=== PATIENT | female | born 1985 | race Caucasian/White ===

== ENCOUNTER → 2019-04-07 | Outpatient (CLI) | payer OTHER ==
[~2019-04-07] MED LIST: BACTRIM DS 8001 TA1 PO; CIPROFLOXACIN500 MG PO; CLARITIN10 MG PO; IBUPROFEN800 MG PO; MACROBID100 M1 PO; NKHM
[2019-04-07 12:17] LABS: BASO # 0.1 10*3/uL (0.0-0.1); BASO % 0.6 % (0.0-1.0); EOS # 0.2 10*3/uL (0.0-0.4); EOS % 2.8 % (1.0-4.0); HEMATOCRIT 43.4 % (37.0-47.0); HEMOGLOBIN 14.6 g/dl (12.0-16.0); LYMPH # 1.5 10*3/uL (1.3-4.4); LYMPH % 19.6 % (27.0-41.0); MEAN CELL VOLUME 94.1 fl (81.0-99.0); MEAN CORPUSCULAR HGB 31.7 pg (27.0-31.0); MEAN CORPUSCULAR HGB CONC 33.6 g/dl (33.0-37.0); MONO # 0.5 10*3/uL (0.1-1.0); MONO % 5.8 % (3.0-9.0); NEUT # 5.5 10*3/uL (2.3-7.9); NEUT % 70.9 % (47.0-73.0); PLATELET COUNT AUTOMATED 319 10*3/uL (130-400); RED BLOOD COUNT 4.61 10*6/uL (4.10-5.10); RED CELL DISTRI WIDTH 11.9 % (0-14.5); RETICULOCYTE % 1.83 % (0.50-2.50); WHITE BLOOD COUNT 7.7 10*3/uL (4.8-10.8)
[2019-04-07 12:58] LABS: FERRITIN 29.8 ng/mL (10.0-291.0); VITAMIN D, 25-HYDROXY 23.2 ng/mL (30-100)
[2019-04-07 12:59] LABS: ALBUMIN 4.4 gm/dl (3.1-4.5); ALKALINE PHOSPHATASE 79 U/L (45-117); BUN 11 mg/dl (7-24); CHLORIDE 108 mmol/L (98-107); CHOLESTEROL 196 mg/dL (<200); CREATININE 0.86 mg/dL (0.55-1.02); GAMMA GLUTAMYL TRANSPEPTIDASE 12 U/L (5-55); HDL CHOLESTEROL 71 mg/dl (40-60); IRON 95 ug/dL (50-170); LDL CHOLESTEROL 112 mg/dL (9-159); POTASSIUM 3.5 mmol/L (3.5-5.1); SGOT/AST 20 IU/L (3-35); SGPT/ALT 27 U/L (12-78); SODIUM 140 mmol/L (136-145); TOTAL IRON BINDING CAPACITY 323 ug/dl (250-450); TOTAL PROTEIN 8.1 gm/dL (6.4-8.2); TRIGLYCERIDES 66 mg/dl (<150); URIC ACID 4.3 mg/dL (2.6-6.0); VLDL CHOLESTEROL 13 mg/dL (6-40)
[2019-04-08 08:06] LABS: RHEUMATOID ARTHRITIS FACTOR <10.0 IU/mL (0.0-13.9)
[2019-04-08 12:08] LABS: ANTI-DSDNA ANTIBODIES 096339 2 IU/mL (0-9)
== END | disposition home or self-care (01) ==
LOC: LAB 11:41
PROVIDERS: Family Medicine
DX: E55.9 Vitamin D deficiency, unspecified (principal); R53.83 Other fatigue; R79.89 Other specified abnormal findings of blood chemistry

== ENCOUNTER → 2020-12-18 | Outpatient (CLI) | payer MEDICAID ==
[2020-12-18 09:30] LABS: BASO # 0.1 10*3/uL (0.0-0.1); BASO % 0.6 % (0.0-1.0); EOS # 0.4 10*3/uL (0.0-0.4); EOS % 4.7 % (1.0-4.0); HEMATOCRIT 44.1 % (37.0-47.0); LYMPH # 1.9 10*3/uL (1.3-4.4); LYMPH % 22.3 % (27.0-41.0); MEAN CELL VOLUME 97.4 fl (81.0-99.0); MEAN CORPUSCULAR HGB 32.5 pg (27.0-31.0); MEAN CORPUSCULAR HGB CONC 33.3 g/dl (33.0-37.0); MEAN PLATELET VOLUME 10.1 fl (9.6-12.3); MONO # 0.7 10*3/uL (0.1-1.0); MONO % 8.2 % (3.0-9.0); NEUT # 5.5 10*3/uL (2.3-7.9); NEUT % 63.6 % (47.0-73.0); PLATELET COUNT AUTOMATED 344 10*3/uL (130-400); RED BLOOD COUNT 4.53 10*6/uL (4.10-5.10); RED CELL DISTRI WIDTH 12.9 % (0-14.5); RETICULOCYTE % 2.07 % (0.50-2.50); WHITE BLOOD COUNT 8.6 10*3/uL (4.8-10.8)
[2020-12-18 09:48] LABS: ALBUMIN 3.8 gm/dl (3.1-4.5); ALKALINE PHOSPHATASE 70 U/L (45-117); BUN 13 mg/dl (7-24); CHLORIDE 107 mmol/L (98-107); GAMMA GLUTAMYL TRANSPEPTIDASE 20 U/L (5-55); POTASSIUM 4.1 mmol/L (3.5-5.1); SODIUM 139 mmol/L (136-145)
[2020-12-18 09:50] LABS: CHOLESTEROL 182 mg/dL (<200); CREATININE 0.83 mg/dL (0.55-1.02); IRON 140 ug/dL (50-170); SGOT/AST 19 IU/L (3-35); SGPT/ALT 29 U/L (12-78); TOTAL PROTEIN 7.6 gm/dL (6.4-8.2); TRIGLYCERIDES 66 mg/dl (<150); URIC ACID 4.4 mg/dL (2.6-6.0)
[2020-12-18 09:51] LABS: BILIRUBIN Negative (Negative); BLOOD 2+ (Negative); CLARITY Clear (Clear); COLOR Yellow (Yellow); GLUCOSE Negative (Negative); KETONE Negative (Negative); LEUKO ESTERASE Negative (Negative); NITRITE Negative (Negative); SPECIFIC GRAVITY 1.015 (1.001-1.030)
[2020-12-18 09:59] LABS: LDL CHOLESTEROL 95 mg/dL (9-159); TOTAL IRON BINDING CAPACITY 350 ug/dl (250-450)
[2020-12-18 10:03] LABS: BACTERIA TRACE; RBC 31-40 rbc/hpf (0-2); WBC 0-2 wbc/hpf (0-5)
[2020-12-18 10:19] LABS: FERRITIN 27.8 ng/mL (10.0-291.0)
[2020-12-18 10:21] LABS: VITAMIN D, 25-HYDROXY 24.5 ng/mL (30-100)
[2020-12-19 04:06] LABS: RHEUMATOID ARTHRITIS FACTOR <10.0 IU/mL (0.0-13.9)
[2020-12-19 14:08] LABS: ANTI-DSDNA ANTIBODIES 1 IU/mL (0-9)
== END | disposition home or self-care (01) ==
LOC: LAB 08:55
PROVIDERS: ATTEND Family Medicine
DX: R06.02 Shortness of breath (principal); R79.89 Other specified abnormal findings of blood chemistry; R53.83 Other fatigue; R74.8 Abnormal levels of other serum enzymes; E78.5 Hyperlipidemia, unspecified; E55.9 Vitamin D deficiency, unspecified

== ENCOUNTER → 2022-01-08 | Outpatient (CLI) | payer OTHER | END | disposition home or self-care (01) | LOC: MAMMO 12:27 | PROVIDERS: ATTEND Family Medicine | DX: N63.20 Unspecified lump in the left breast, unspecified quadrant (principal); R92.2 Inconclusive mammogram ==